=== PATIENT | female | born 1975 | race Caucasian/White ===

== ENCOUNTER → 2017-03-18 | Outpatient (CLI) | payer BC ==
[~2017-03-18] MED LIST: BACTRIM DS 8001 TAB PO; BENICAR 20MG TA20 MG PO; CELEXA 20MG20 MG/TAB PO; MULTIPLE VITAMI1 TAB PO; PREMARIN 0.9MG0.9 MG PO; PROTONIX20 MG PO
== END ==
LOC: MC.RAD 14:30
DX: Z12.31 Encounter for screening mammogram for malignant neoplasm of breast (principal)

== ENCOUNTER 2018-03-25 05:54 | Day surgery (SDC) | payer BC ==
[~2018-03-25] VITALS: Ht 154.9 cm; Wt 79.1 kg
[2018-03-25 06:13] VITALS: BP 120/86; PULSE 77; TEMP 98.4
[2018-03-25] MEDS ORDERED: PROTONIX 40MG T40 MG PO (06:44)
[2018-03-25] MEDS ORDERED: ESSENTIAL OILS PO (06:45)
[2018-03-25] MEDS ORDERED: MULTI VITAMINS1 TAB PO (06:48)
[2018-03-25 07:40] VITALS: BP 99/68; PULSE 74; TEMP 98.2
[2018-03-25 07:45] VITALS: BP 87/72; PULSE 72
[2018-03-25 08:00] VITALS: BP 99/68; PULSE 75
[2018-03-25 08:15] VITALS: BP 107/74; PULSE 73; TEMP 98.1
== END 2018-03-25 08:25 | disposition home or self-care (01) ==
LOC: SDCO 05:54
DX: Z12.11 Encounter for screening for malignant neoplasm of colon (principal); M79.7 Fibromyalgia; Z80.0 Family history of malignant neoplasm of digestive organs; N30.10 Interstitial cystitis (chronic) without hematuria; Z88.8 Allergy status to other drugs, medicaments and biological substances
CPT/HCPCS: J2250; J2405; J3010; J7030

== ENCOUNTER → 2018-05-13 | Outpatient (CLI) | payer BC ==
[~2018-05-13] MED LIST changes: +ESSENTIAL OILS PO; +MULTI VITAMINS1 TAB PO; +PROTONIX 40MG T40 MG PO
== END ==
LOC: MC.RAD 04-08 07:00
DX: Z12.31 Encounter for screening mammogram for malignant neoplasm of breast (principal)

== ENCOUNTER → 2019-04-20 | Outpatient (CLI) | payer BC | LOC: MC.RAD 07:00 | DX: Z12.31 Encounter for screening mammogram for malignant neoplasm of breast (principal) ==

== ENCOUNTER → 2020-04-26 | Outpatient (CLI) | payer BC | LOC: MC.RAD 10:42 | DX: Z12.31 Encounter for screening mammogram for malignant neoplasm of breast (principal) ==

== ENCOUNTER → 2021-05-15 | Outpatient (CLI) | payer BC | LOC: MC.RAD 15:27 | DX: Z12.31 Encounter for screening mammogram for malignant neoplasm of breast (principal) ==

== ENCOUNTER → 2022-07-21 | Outpatient (CLI) | payer BC | LOC: COL.RAD 13:16 | DX: R07.89 Other chest pain (principal) ==

== ENCOUNTER 2023-03-26 07:52 | Day surgery (SDC) | payer BC ==
[~2023-03-26] VITALS: Ht 154.9 cm; Wt 80.0 kg
[2023-03-26 08:42] VITALS: BP 148/109; PULSE 80; TEMP 98.4
[2023-03-26 10:05] VITALS: BP 129/82; PULSE 68
[2023-03-26 10:15] VITALS: BP 124/82; PULSE 70
[2023-03-26 10:25] VITALS: BP 105/74; PULSE 72
--- NOTE | 2023-03-26 10:34 | NUR ---
1005- PATIENT RETURNS TO [facility] AND STOPPED AT THE BATHROOM FIRST D/T "ABD CRAMPING". PATIENT THEN AMBULATED FROM THE BATHROOM TO BAY 6 WITH A 1 SBA. PT AWAKE AND ALERT. RESPIRATIONS UNLABORED. PT DENIES NAUSEA AT THIS TIME, BUT CONTINUED TO HAVE ABD PAIN AFTER USING THE BATHROOM. PATIENT GIVEN WARM BLANKETS ACROSS HER ABD AND ENCOURGAED TO SIT IN RECLINER WITH HER KNEES UP- WHICH SHE DID. HOOKED UP TO MONITOR AND VS OBTAINED. CALL LIGHT AT SIDE AND FRIEND PRESENT. 1010- PATIENT TOLERATING WATER AND MUFFIN WITHOUT NAUSEA. 1022- D/C INSTRUCTIONS REVIEWED WITH PATIENT. PT VERBALIZED UNDERSTANDING AND A COPY OF INSTRUCTIONS PROVIDED IN D/C FOLDER. 1024- DR. MCCRACKEN IN ROOM SPEAKING WITH PATIENT. 1025- IV REMOVED. CATH TIP INTACT.MEJIA C/D/I. 1028- PATIENT DRESSES SELF. 1034- PATIENT DISCHARGED FROM UNIT VIA W/C TO A PERSONAL VEHICLE. PT LEFT HOSPITAL IN STABLE CONDITION.
== END 2023-03-26 10:34 | disposition home or self-care (01) ==
LOC: SDCO 07:52
DX: Z12.11 Encounter for screening for malignant neoplasm of colon (principal); Z80.0 Family history of malignant neoplasm of digestive organs
CPT/HCPCS: J2405; J2704; J7120

== ENCOUNTER → 2023-06-17 | Outpatient (CLI) | payer BC | LOC: MC.RAD 07:26 | DX: Z12.31 Encounter for screening mammogram for malignant neoplasm of breast (principal) ==

== ENCOUNTER → 2023-12-27 | Outpatient (CLI) | payer BC ==
[~2023-12-27] VITALS: Ht 154.9 cm; Wt 82.6 kg
[2023-12-27 14:02] VITALS: BP 130/87; PULSE 69; TEMP 98
--- NOTE | 2023-12-27 15:00 | NUR ---
Dr Choudhary into talk with pt. Dr Choudhary reports lymph node has not changed since 2013. No need for a biopsy, Dr Choudhary talked with pt regarding options. Pt returns to holding area and gets dressed. 1509 Pt out to car per ambulation. procedure canceled.
== END ==
LOC: COL.RAD 13:47
DX: R59.1 Generalized enlarged lymph nodes (principal)